=== PATIENT | male | born 2000 | race African-American/Black ===

== ENCOUNTER 2019-02-23 00:32 | Emergency (ER) | payer MEDICAID, OTHER ==
[~2019-02-23] VITALS: Ht 182.9 cm; Wt 84.8 kg
[2019-02-23] MEDS ORDERED: IBUPROFEN 800 MG TAB PO ONE (01:00)
[2019-02-23 02:36] VITALS: BP 137/79
== END 2019-02-23 03:23 | disposition home or self-care (01) ==
LOC: ER 00:36
DX: S93.401A Sprain of unspecified ligament of right ankle, initial encounter (principal); X58.XXXA Exposure to other specified factors, initial encounter; Y93.67 Activity, basketball; Y92.89 Other specified places as the place of occurrence of the external cause; Y99.8 Other external cause status
CPT/HCPCS: 73610